=== PATIENT | female | born 1965 | race Caucasian/White ===

== ENCOUNTER → 2018-01-28 08:14 | Outpatient (CLI) | payer OTHER, SELFPAY ==
--- NOTE | 2018-01-28 09:00 | ASPIG_PTH ---
PATIENT: SARAH ESPINO LOC: [facility] U#:[id number] AGE/SX: 59/F ROOM: RE01/28/[address]: Dr. Manjeet Toledo MD : 1965 BED: DIS: SPEC #: [id number] RECD: 01/30/18 07:58 STATUS: SANDRA CHARY #: [id number] IFEANYI: 01/28/18 09:[address]: Manjeet Toledo DEPT: CYTOLOGY RECD BY: Colt Castellanos Tissues: Thyroid gland, NOS Procedures: FNA Specimen Adequacy Pap Stain (control) Special Stain Group II Surgery Specimen Level IV Cytology Other HEADER OPERATION: Left thyroid FNA PRE-OP DIAGNOSIS: Left thyroid nodule TISSUE SUBMITTED: Left thyroid slides x6 DIAGNOSIS CYTOLOGY Left thyroid nodule, FNA (smears): Consistent with benign follicular nodule. See cytology study and comment. SJ:carmelita 01/31/18 COMMENT Correlation with clinical, radiologic findings and appropriate follow up are necessary. CYTOLOGY STUDY Slides are reviewed. The specimen is adequate for evaluation. The specimen consists of benign follicular cells and lymphocytes. The findings are suggestive of chronic lymphocytic thyroiditis. CYTOLOGY GROSS Received are six smears labeled with the patient's name and designated per the requisition as left thyroid. Submitted for staining. 01/30/18 TC:5 [facility]: [id number]
[2018-01-28 09:08] VITALS: BMI 43.4
== END ==
PROVIDERS: Referring Provider Surgery; Visit Provider Surgery
DX: E04.1 Nontoxic single thyroid nodule (principal)
CPT/HCPCS: 88161; 88172; 88305; 88313